=== PATIENT | female | born 1960 | race African-American/Black ===

== ENCOUNTER 2017-06-19 06:28 | Day surgery (SDC) | payer OTHER ==
[2017-06-14 12:24] VITALS: BMI 30.7
[2017-06-19] MEDS ORDERED: HEPARIN NA (PORCINE) 5,000 UNITS/ML 1ML VIAL ONE (06:59)
[2017-06-19] MEDS ORDERED: PHENYLEPHRINE HCL 10 MG/1 ML SINGLE DOSE VIAL ONE (07:04)
[2017-06-19] MEDS ORDERED: ceFAZolin SODIUM 1 GM VIAL ONE (07:04)
[2017-06-19] MEDS ORDERED: ePHEDrine SULFATE 50 MG/1 ML AMPULE ONE (07:04)
[2017-06-19] MEDS ORDERED: ONDANSETRON 4 MG/2 ML VIAL ONE ×2 (07:04→16:50)
[2017-06-19] MEDS ORDERED: DEXAMETHASONE SOD PHOSPHATE 4 MG/1 ML VIAL ONE (07:04)
[2017-06-19] MEDS ORDERED: fentaNYL CITRATE 250 MCG/5 ML VIAL ONE (07:05)
[2017-06-19] MEDS ORDERED: PROPOFOL 20 ML ONE ×2 (07:06)
[2017-06-19] MEDS ORDERED: SUCCINYLCHOLINE CHLORIDE 200 MG/10 ML VIAL ONE (07:06)
[2017-06-19] MEDS ORDERED: ROCURONIUM BROMIDE 50 MG/5 ML VIAL ONE ×4 (07:07→11:41)
[2017-06-19] MEDS ORDERED: MIDAZOLAM HCL 2 MG/2 ML SINGLE DOSE VIAL ONE ×2 (07:07)
[2017-06-19] MEDS ORDERED: LIDOCAINE HCL/PF 2% SDV 5ML VIAL ONE (07:08)
[2017-06-19] MEDS ORDERED: ALBUTEROL SO4 18 GM HFA INHALER IH ONE (07:08)
[2017-06-19] MEDS ORDERED: SCOPOLAMINE HYDROBROMIDE 1 PATCH PATCH.TD72 ONE (07:13)
[2017-06-19] MEDS ORDERED: ACETAMINOPHEN INJECTION 100 ML IVPB ONE ×2 (07:13→16:51)
[2017-06-19] MEDS ORDERED: LIDOCAINE 1% P/F 10 MG/ML VIAL ONE (07:13)
[2017-06-19] MEDS ORDERED: BUPIVACAINE HCL/PF 2.5 MG/ML - 30 ML VIAL IJ ONE (07:23)
[2017-06-19] MEDS ORDERED: EPINEPHrine 1:1,000 1 MG/1 ML - 30ML VIAL (INJECTION) ONE (07:24)
[2017-06-19] MEDS ORDERED: BACITRACIN 15 GM TUBE TOPICAL OINTMENT ONE (07:24)
[2017-06-19] MEDS ORDERED: LIDOCAINE 1%/EPI 1:100000 (20 ML MULTI DOSE VIAL) ONE (07:24)
[2017-06-19] MEDS ORDERED: LIDOCAINE HCL 1%, 10 MG/ML (20ML VIAL) ONE (07:24)
[2017-06-19] MEDS ORDERED: CLINDAMYCIN PHOSPHATE 600 MG/4 ML VIAL ONE (07:51)
[2017-06-19] MEDS ORDERED: HYDROmorphone HCL/PF 1 MG/ML VIAL (FOR PYXIS CHARGING ONLY) ONE (13:58)
[2017-06-19] MEDS ORDERED: LIDOCAINE HCL 2% JELLY (5 ML/TUBE) ONE (15:09)
[2017-06-19] MEDS ORDERED: ONDANSETRON 4 MG/2 ML VIAL IVPUSH PRN (15:49)
[2017-06-19] MEDS ORDERED: PROMETHAZINE HCL 25 MG/1 ML VIAL IVPUSH PRN (15:49)
[2017-06-19] MEDS ORDERED: ONDANSETRON 4 MG/2 ML VIAL IVPB PRN (15:53)
[2017-06-19] MEDS ORDERED: morphine CARPU-JECT 10 MG/1 ML DISP.SYRIN IVPUSH PRN (15:53)
[2017-06-19] MEDS ORDERED: FLUTICASONE PROP 0.05% 16 GM NASAL SPRAY NS PRN (15:55)
[2017-06-19] MEDS ORDERED: LACTATED RINGERS SOLUTION 1,000 ML IV SCH ×2 (16:00)
--- NOTE | 2017-06-19 16:04 | OP ---
Operative Note - Note: Operative Date: 06/19/17 Pre-Operative Diagnosis: bilateral symptomatic macromastia with abdominal adiposity Operation: bilateral breast reduction with abdominoplasty Findings: above Implants: none Post-Operative Diagnosis: Same as Pre-op Surgeon: Leopoldo Harmon Job Cost Estimator: Rudy Cunningham Anesthesia: General Specimens Removed: bilateral breast tissue Estimated Blood Loss (mls): 200 Drains & Tubes with Location: TORSTEN x 4 Operative Report Dictated: Yes
[2017-06-19] MEDS: ACETAMINOPHEN 1000 MG/100 ML VIAL (NON FORMULARY) IVPB PRN (16:50)
--- NOTE | 2017-06-19 19:12 | SURG ---
Surgery Advertising Consultant Note Advertising Consultant: Rudy Cunningham PA-C Date of Service: 06/19/17 Diagnosis: bilateral symptomatic macromastia with abdominal adiposity Procedure: bilateral breast reduction with abdominoplasty I was present for the entirety of the operative procedure. For further detail, please refer to operative report. Visit type - Case Type Case Type: Scheduled Admission - New patient This patient is new to me today: Yes Date on this admission: 06/19/17
[2017-06-19] MEDS: CLINDAMYCIN 300 MG PREMIX IVPB 300 MG/50 ML BAG IVPB SCH (20:52)
--- NOTE | 2017-06-19 22:35 | OP ---
DATE OF OPERATION: 06/19/2017 TITLE OF PROCEDURE: Bilateral breast reduction with abdominoplasty. ATTENDING SURGEON: Leopoldo Hamron MD HAMMER FITTER: KERRI Harper ANESTHESIA: General endotracheal; Ankush Vaughan MD. The patient is seen in the holding area. She is marked for a vertical breast reduction with abdominoplasty. She is awake and aware of all incisions and resulting scars. All risks, benefits, and alternatives to the procedure, as well as the limitations, are explained. She understands and agrees to proceed. The patient is given 5000 units of subcutaneous heparin preoperatively. She is given preoperative antibiotics as per Anesthesia. Sequential compression stockings and ZULEYMA hose were applied in the holding area. She was brought to the operating room and placed in supine position. Position is carefully checked by surgical and anesthesia teams. A Slater catheter is placed, which is removed at the end of the procedure. Patient is then prepped and draped in standard surgical fashion after anesthesia is given. A timeout is called. Patient, procedure, side, and site are verified. The procedure is as follows: The abdominoplasty procedure is performed first with an incision made along the infrapannicular crease. The dissection is then carried down to the level of the abdominal wall fascia, and dissection is carried along the abdominal wall fascia until the level of the umbilicus. At this point, the umbilicus is circumcised and developed on a Y fibrofatty stalk to the base of the fascia. The remainder of the abdominoplasty flap is elevated to the xiphoid process and the midline costal margins bilaterally. Hemostasis is meticulously achieved, and a midline plication is then performed first with a series of interrupted, buried, [id number] 1 Prolene suture both above and below the umbilicus, followed by a running locking 1 Prolene suture reinforcing this plication both above and below the umbilicus. The sub-Rob fat is then trimmed with facelift scissors tangentially where necessary. Hemostasis is meticulously achieved. Wounds are copiously irrigated with normal saline. The patient is brought to a 30-degree flexed position where the abdominoplasty flap is then transposed. Excess skin and fat are removed. Drains are placed to bulb suction bilaterally, secured with 3-0 silk drain sutures. The left-sided drain is along the lower recess of the wound, and the right TORSTEN drain is along the superior recess of the wound. With the skin partially closed, the umbilicus is then sited and translocated through a Star Trek pattern incision. The umbilicus is converted to a triangular tissue, and an inferior 6 o'clock notch is cut to accept the inferior flap of the abdominal skin. The umbilicus is inset with a series of interrupted, buried, deep dermal, 3-0 Monocryl suture, followed by a series of interrupted 4-0 nylon suture. The remainder of the abdominoplasty is then closed with a series of interrupted superficial fascial system, Rob layer, buried 2-0 Vicryl suture, followed by a series of interrupted, buried, deep dermal, 3-0 Monocryl suture, followed by a running, subcuticular, 3-0 Monocryl suture with several 5-0 nylon sutures to perfect the skin closure. Attention is then directed towards the bilateral breasts. The nipples are then sighted at 22 cm from the sternal notch bilaterally. A vertical pattern had been marked. The superior pedicles are then marked. Right breast is addressed first. Superior pedicle is de-epithelialized with the exception of the nipple-areolar complex. Nipple-areola had been traced with a 45-mm cookie cutter. The pedicle is developed, leaving deep perforating blood vessels from the chest wall. Skin and parenchymal tissue between the medial and lateral pillars in the skin markings are excised down to the level of the chest wall, and hemostasis is achieved. Medial and lateral pillars are repaired to one another with a series of interrupted 2-0 PDS suture. Nipple-areola is inset into the scientology pattern with a series of interrupted, buried, deep dermal, 3-0 Monocryl suture, followed by a running subcuticular 3-0 Monocryl suture. Hemostasis was then meticulously achieved. A size 10 flat TORSTEN drain is brought out through the inferior fornix of the wound. The resected weight on the right breast is 271 g, including skin and resected breast tissue. The remainder of the skin is tailor tacked, and attention is then directed toward the contralateral left side, which was the larger side. A mirror-image procedure is performed, likewise resecting tissue between the medial and lateral pillars. The resection weight on the left side is 307 g. Nipples are bilaterally viable and reactive with good dermal bleeding from the distal portion of the pedicle. Hemostasis was then meticulously achieved, and medial and lateral pillars are secured to one another with a series of interrupted 2-0 PDS suture. Drains are secured with 3-0 silk drain suture, placed to suction, with the skin tailor tacked. The patient was brought to a seated upright position. The nipple position is found to be symmetric. Excess skin in the inferior pole is marked for a small batwing excision both medially and laterally on both breasts. This was performed with skin removed after de-epithelialization, not full-thickness excision. The inverted T point is closed with a half-buried mattress, 2-0 nylon suture. The remainder of the incisions are closed, first with a series of interrupted, buried, deep dermal, 3-0 Monocryl suture, followed by a running, subcuticular, 3-0 Monocryl suture both on the vertical and horizontal limbs. The nipple-areola is inset with a series of interrupted, buried, deep dermal, 3-0 Monocryl suture, followed by a running subcuticular 4-0 Monocryl suture. Drains were placed to bulb suction. All tissues were pink and viable. Steri-Strips are applied both to the abdomen and the breast. The umbilicus is dressed with bacitracin and Xeroform. An abdominal binder is applied with the patient maintained in a flexed position. ABD gauze and 4 x 4 gauze and a surgical bra are applied. Patient is transferred to the hospital bed after being awoken from anesthesia without or complication. Slater catheter is removed at the end of the procedure. She was transferred to recovery without complication. LEOPOLDO HARMON M.D. [id number]
[2017-06-20] MEDS: CLINDAMYCIN 300 MG PREMIX IVPB 300 MG/50 ML BAG IVPB SCH ×2 (01:13→09:14)
[2017-06-20] MEDS: ACETAMINOPHEN 1000 MG/100 ML VIAL (NON FORMULARY) IVPB PRN (02:53)
[2017-06-20 06:11] VITALS: BP 150/81; PULSE 77; TEMP 98.6
[2017-06-20] MEDS ORDERED: LEVOTHYROXINE NA 125 MCG TABLET (FP) PO SCH (07:00)
--- NOTE | 2017-06-20 07:34 | PN ---
Progress Note (short form) - Note Progress Note: OOB ambulating VSS AF Receiving sq hep All TORSTEN thin and functioning Giovanna po OK for discharge
[2017-06-20] MEDS ORDERED: morphine SULFATE 4 MG/ML VIAL IVPUSH PRN (07:59)
[2017-06-20] MEDS ORDERED: HEPARIN NA (PORCINE) 5,000 UNITS/ML 1ML VIAL SQ SCH (08:00)
--- NOTE | 2017-06-20 08:10 | PN ---
Progress Note (short form) - Note Progress Note: 56 yo female post day 1. Doing well. Pain adequately controlled. Encouraged IS and ambulation. Advancing diet as tolerated. No nausea reported.
--- NOTE | 2017-06-22 15:58 | PATH ---
Surgical Pathology Report Patient Name: ABDI MARSH [facility]. Rec. #: [id number] /Age/Gender: 1960 (Age: 56) / F Account: [id number] Location: [facility] AMBULATORY Taken: 06/19/2017 Received: 06/19/2017 Reported: 06/22/2017 Physicians: Leopoldo Harmon Specimen(s) Received A: ABDOMINAL SKIN & TISSUE B: RIGHT BREAST SKIN & TISSUE C: LEFT BREAST SKIN & TISSUE Clinical History Cosmetic Final Diagnosis A. ABDOMINAL SKIN AND TISSUE, ABDOMINOPLASTY: SKIN AND ADIPOSE TISSUE, DESCRIBED (GROSS EXAMINATION ONLY). B. SKIN AND BREAST TISSUE, RIGHT, REDUCTION: BENIGN BREAST TISSUE SHOWING PROLIFERATIVE FIBROCYSTIC CHANGES INCLUDING CYSTIC APOCRINE METAPLASIA AND USUAL DUCTAL HYPERPLASIA (UDH). SKIN WITH NO PATHOLOGIC FINDINGS. C. SKIN AND BREAST TISSUE, LEFT, REDUCTION: FOCAL ATYPICAL DUCTAL HYPERPLASIA (ADH) WITH ASSOCIATED CALCIFICATIONS ARISING IN A BACKGROUND OF PROLIFERATIVE FIBROCYSTIC CHANGES INCLUDING CYSTIC APOCRINE METAPLASIA AND USUAL DUCTAL HYPERPLASIA (UDH). SKIN WITH NO PATHOLOGIC FINDINGS. Electronically Signed Jenni Nunez M.D. Gross Description A. Received in formalin labeled "abdominal skin and tissue," is a 1097 g, 22.0 x 20.0 x 4.0 cm aggregate of 2 brown, triangular, unoriented portions of skin with underlying soft tissue. The epidermal surfaces are unremarkable. Sectioning of the soft tissue reveals unremarkable yellow, lobulated adipose tissue. No lesions are identified. No sections are submitted, gross only. B. Received in formalin labeled "right breast skin and tissue," is a 287 g, 18.0 x 11.0 x 4.5 cm aggregate of multiple irregular, unoriented portions of fibroadipose tissue and carlisle-brown, unremarkable skin. Sectioning reveals foci of white fibrous tissue. Inspector General sections are submitted in 3 cassettes. C. Received in formalin labeled "left breast skin and tissue," is a 316 g, 16.0 x 11.0 x 5.0 cm aggregate of multiple irregular, unoriented portions of fibroadipose tissue and carlisle-brown, unremarkable skin. Sectioning reveals foci of white fibrous tissue. Inspector General sections are submitted in 5 cassettes. 06/20/2017 saudi06/20/2017
== END 2017-06-20 10:50 | disposition home or self-care (01) ==
LOC: FASU 06:28 → FM/S 18:25 → FASU 06-20 10:50
PROVIDERS: ATTEND Plastic Surgery
PROC: 0HBV0ZZ Excision of Bilateral Breast, Open Approach (ICD-10-PCS; principal; 2017-06-19 07:30)
PROC: 0J080ZZ Alteration of Abdomen Subcutaneous Tissue and Fascia, Open Approach (ICD-10-PCS; 2017-06-19 07:30)
DX: N62 Hypertrophy of breast (principal)
CPT/HCPCS: 84703; 88300-TC; 88304-TC; 94760; J1644